=== PATIENT | female | born 1975 | race Caucasian/White ===

== ENCOUNTER 2017-05-10 07:48 | Outpatient (CLI) | payer OTHER ==
[~2017-05-10 07:48] MED LIST: CIPRO500 MG PO; ENDOCET 5/325 T1 TAB PO
== END 2017-05-10 07:51 | disposition home or self-care (01) ==
LOC: SONOGRAMA 07:48
DX: E04.1 Nontoxic single thyroid nodule (principal)

== ENCOUNTER 2018-09-07 13:40 | Emergency (ER) | payer OTHER ==
[~2018-09-07] VITALS: Ht 157.5 cm; Wt 53.5 kg
== END 2018-09-07 17:44 | disposition home or self-care (01) ==
LOC: ER 13:40
DX: N20.0 Calculus of kidney (principal); R10.32 Left lower quadrant pain

== ENCOUNTER 2020-05-17 09:33 | Outpatient (CLI) | payer OTHER | END 2020-05-17 09:44 | disposition home or self-care (01) | LOC: SONOGRAMA 09:33 | PROVIDERS: ATTEND Pathology Anatomic Pathology & Clinical Pathology | DX: E04.2 Nontoxic multinodular goiter (principal) ==